=== PATIENT | female | born 1990 | race Caucasian/White ===

== ENCOUNTER → 2017-12-28 | Outpatient (CLI) | payer BC ==
[2017-12-28 09:56] LABS: HCT 36.2 % (34.0-46.0); HGB 12.6 gm/dL (11.4-16.0); MCH 29.3 pg (25.0-35.0); MCHC 34.8 g/dL (31.0-37.0); Mean Platelet Volume 7.9; Platelet Count 151 k/uL (150-450); RDW 13.8 % (11.5-15.5); WBC 7.6 k/uL (3.8-10.6)
[2017-12-28 18:29] LABS: HIV AB P24 Non-Reactive (Non-Reactive); HIV P24 AG Non-Reactive (Non-Reactive)
[2017-12-30 11:01] LABS: Parvovirus B-19 IgG Antibodies 7.37 INDEX (<=0.90); Parvovirus B-19 IgM Antibodies 0.15 INDEX (<=0.90)
== END ==
LOC: LABWHC1 09:04
PROVIDERS: ATTEND Obstetrics & Gynecology
DX: Z34.90 Encounter for supervision of normal pregnancy, unspecified, unspecified trimester (principal)
CPT/HCPCS: 36415; 82950; 85027; 86747; 86762; 86780; 86850; 86900; 86901; 87086; 87340; 87390

== ENCOUNTER 2018-07-04 01:57 | Inpatient (IN) | payer BC ==
[2018-07-04] MEDS ORDERED: METHYLERGONOVINE 0.2 MG/ML 1 ML AMP IM PRN (02:30)
[2018-07-04] MEDS ORDERED: OXYTOCIN 10 UNIT/ML 1 ML VIAL IM PRN (02:30)
[2018-07-04] MEDS ORDERED: OXYTOCIN 20 UNITS/1000 ML NS 1,000 ML IV SCH ×2 (02:30→18:30)
[2018-07-04] MEDS ORDERED: CARBOPROST TROMETHAMINE 250 MCG/ML 1 ML AMP IM PRN (02:30)
[2018-07-04] MEDS ORDERED: LIDOCAINE 0.5% (PF) 5 MG/ML (50 ML SDV) SQ PRN (02:30)
[2018-07-04] MEDS ORDERED: TERBUTALINE 1 MG/ML VIAL SQ PRN (02:30)
[2018-07-04 02:55] VITALS: BMI 38.2
[2018-07-04 02:59] LABS: Basophils % (A) 0 %; Eosinophils # (A) 0.1 k/uL (0-0.7); Eosinophils % (A) 1 %; HCT 38.9 % (34.0-46.0); Lymphocytes # (A) 1.4 k/uL (1.0-4.8); Lymphocytes % (A) 15 %; MCH 28.2 pg (25.0-35.0); MCHC 33.3 g/dL (31.0-37.0); MCV 84.8 fL (80.0-100.0); Mean Platelet Volume 7.8; Monocytes # (A) 0.5 k/uL (0-1.0); Monocytes % (A) 5 %; Neutrophils % (A) 77 %; Platelet Count 148 k/uL (150-450); RBC 4.59 m/uL (3.80-5.40); RDW 14.9 % (11.5-15.5); WBC 9.1 k/uL (3.8-10.6)
[2018-07-04] MEDS: LACTATED RINGERS 1,000 ML IV SCH ×3 (03:00→10:42)
[2018-07-04] MEDS ORDERED: BUTORPHANOL 1 MG/ML 1 ML VIAL IV PRN (03:59)
[2018-07-04] MEDS ORDERED: fentaNYL (PF) 50 MCG/ML 5 ML AMP ONE (07:39)
[2018-07-04] MEDS ORDERED: LIDOCAINE 1% INJ 10MG/ML (20 ML MDV) ONE (07:39)
[2018-07-04] MEDS ORDERED: SODIUM CHLORIDE 0.9% 100 ML BAG ONE (07:39)
[2018-07-04] MEDS ORDERED: ROPIVACAINE 5MG/ML 20ML VIAL ONE (07:39)
--- NOTE | 2018-07-04 10:59 | P.HPOB ---
History of Present Illness H&P Date: 07/04/18 Chief Complaint: IUP @ 38 3/7 weeks, PROM This is a 28yo at 38 3/7 weeks that presents to labor and delivery with c/ o SROM around 1 am, clear in nature. she denies CTX, VB and notes good FM. Patient has been receiving routine care with Dr. Lira since first trimester. Patient did fail her 1 hour Glucola but subsequently passed her 3 hour GTT On blood work she had a blood type of B+, rubella immune, hepatitis B surface antigen negative, RPR nonreactive, GBS negative in addition. Review of Systems Constitutional: Denies chills, Denies fatigue, Denies fever Ears, nose, mouth and throat: Denies headache Cardiovascular: Reports leg edema Respiratory: Denies cough, Denies dyspnea Gastrointestinal: Denies constipation, Denies diarrhea, Denies nausea, Denies vomiting Genitourinary: Reports Past Medical History Past Medical History: No Reported History Additional Past Medical History / Comment(s): Migraines History of Any Multi-Drug Resistant Organisms: None Reported Past Surgical History: Adenoidectomy, Tonsillectomy Additional Past Surgical History / Comment(s): sinus surgery Past Anesthesia/Blood Transfusion Reactions: No Reported Reaction Past Psychological History: Anxiety, Depression Smoking Status: Never smoker Past Alcohol Use History: Rare Past Drug Use History: None Reported - Past Family History Mother Family Medical History: No Reported History Medications and Allergies Home Medications Medication Instructions Recorded Confirmed Type L.acidoph,Paracasei, B.lactis 1 each PO DAILY 06/11/17 07/04/18 History [Probiotic] Pnv No.95/Ferrous Fum/Folic AC 1 each PO DAILY 06/11/17 07/04/18 History [ Multivitamin Tablet] busPIRone HCl [Buspar] 10 mg PO BID 06/11/17 07/04/18 History Allergies Allergy/AdvReac Type Severity Reaction Status Date / Time cefaclor [From [facility]] Allergy Swelling Verified 07/04/18 02:05 Exam Osteopathic Statement: *. No significant issues noted on an osteopathic structural exam other than those noted in the History and Physical/Consult. Vital Signs Temp Pulse Resp BP Pulse Ox 07/04/18 02:07 97.5 F L 112 H 16 141/83 96 Intake and Output 07/03/18 07/04/18 07/04/18 22:59 06:59 14:59 Other: # Voids 1 Weight 107.501 kg Targeted physical exam was performed in general she is a well-developed well- nourished gravid female in no acute distress, lungs are clear to auscultation bilaterally heart is noted to have a regular rate and rhythm, abdomen is known to be gravid and appropriate for gestational age, cervix was noted to be 5 cm per RN, patient was noted to be grossly ruptured and fluid was clear in nature. heart tones were noted to be reassuring Results Result Diagrams: 07/04/18 02:49 Abnormal Lab Results - Last 24 Hours (Table) 07/04/18 Range/Units 02:49 Plt Count 148 L (150-450) k/uL Assessment and Plan (1) Term Current Visit: Yes Status: Acute Code(s): Z34.80 - ENCOUNTER FOR SUPRVSN OF NORMAL , UNSP TRIMESTER SNOMED Code(s): 04874756 (2) PROM (premature rupture of membranes) Current Visit: Yes Status: Acute Code(s): O42.90 - BRENNA ROM, 7TH0 BETW RUPT & ONST LABR, UNSP WEEKS OF GEST SNOMED Code(s): 89524287 Plan: Willl admit to labor and delivery, and anticipate spontaneous vaginal delivery later this afternoon
[2018-07-04] MEDS ORDERED: diphenhydrAMINE 50 MG CAP PO PRN (18:24)
[2018-07-04] MEDS ORDERED: LANOLIN CREAM 5 GM TUBE TOPICAL PRN (18:24)
[2018-07-04] MEDS ORDERED: HYDROCORTISONE 2.5% RECTAL CREAM 30 GM TUBE RECTAL PRN (18:24)
[2018-07-04] MEDS ORDERED: diphenhydrAMINE 25 MG CAP PO PRN (18:24)
[2018-07-04] MEDS ORDERED: WITCH HAZEL 1 EACH MED..PAD TOPICAL PRN (18:24)
[2018-07-04] MEDS ORDERED: ACETAMINOPHEN TAB 325 MG TAB PO PRN (18:24)
[2018-07-04] MEDS ORDERED: BENZOCAINE/MENTHOL SPRAY 1 GM/SPRAY AEROSOL TOPICAL PRN (18:24)
[2018-07-04] MEDS ORDERED: diphenhydrAMINE 50 MG/ML 1 ML VIAL IVP PRN ×2 (18:24)
[2018-07-04] MEDS ORDERED: ZOLPIDEM 5 MG TAB PO PRN (18:24)
[2018-07-04] MEDS ORDERED: SIMETHICONE 80 MG CHEWABLE PO PRN (18:24)
--- NOTE | 2018-07-04 18:24 | P.PROBDLV ---
Vaginal Delivery Note - . Vaginal Delivery Note: This is a pleasant 28-year-old 1 para 0 at 38-3/7 weeks that presented to labor and delivery early this morning with complaints of rupture of membranes at 1 AM. Patient noted the fluid to be clear and presented to labor and delivery at 2:30. Patient denied contractions at that time and was 1 cm dilated. Patient was started on Pitocin augmentation of labor and progressed through labor eventually becoming uncomfortable and requested an epidural. Epidural was placed by anesthesia without difficulty. Patient continued through labor became complete began pushing was placed in a modified lithotomy position and with excellent maternal effort patient delivered a viable male at 1747, weight of 8 lbs. 8 oz. with Apgars of 4 and 8. Patient did undergo a midline episiotomy second degree without extension secondary to maternal exhaustion. The placenta was then delivered spontaneously intact with a three-vessel cord being noted. The vaginal vault was inspected and a midline episiotomy had been performed this was repaired in the usual fashion with 3-0 Rapide. A rectal exam was performed and was normal in nature. Afterwards the uterus was noted to be firm and below the umbilicus and the bleeding was noted to be scant. Estimated blood loss for this delivery 300 mL. Infant was noted to have some difficulty with breathing just after delivery and was taken to special care nursery and placed on high flow oxygen. All counts were correct 2 and patient tolerated delivery well
[2018-07-04] MEDS: IBUPROFEN 600 MG TAB PO PRN (18:41)
[2018-07-04] MEDS ORDERED: busPIRone HCl 10 MG TAB PO SCH (21:00)
[2018-07-04] MEDS: SENNOSIDES-DOCUSATE SODIUM 1 EACH TAB PO SCH (21:31)
[2018-07-05] MEDS: IBUPROFEN 600 MG TAB PO PRN ×3 (00:30→14:13)
[2018-07-05 06:59] LABS: Basophils % (A) 0 %; Eosinophils % (A) 0 %; HCT 31.6 % (34.0-46.0); HGB 10.9 gm/dL (11.4-16.0); Lymphocytes % (A) 7 %; MCH 29.6 pg (25.0-35.0); MCHC 34.5 g/dL (31.0-37.0); MCV 85.6 fL (80.0-100.0); Mean Platelet Volume 8.2; Monocytes # (A) 0.6 k/uL (0-1.0); Monocytes % (A) 4 %; Neutrophils # (A) 12.4 k/uL (1.3-7.7); Neutrophils % (A) 88 %; Platelet Count 129 k/uL (150-450); RBC 3.69 m/uL (3.80-5.40); WBC 14.1 k/uL (3.8-10.6)
[2018-07-05] MEDS ORDERED: PRENATAL VIT-IRON-FOLIC ACID 1 EACH CAP PO SCH (09:00)
--- NOTE | 2018-07-05 09:02 | P.PNOBGVD ---
Subjective - Subjective Principal diagnosis: PPD 1 Interval history: Patient is doing well . She is ambulating and voiding without difficulty, she is tolerating a regular diet without nausea or vomiting. She denies concerns this morning. She is pumping as the is in special care nursery. Patient reports: Reports appetite normal, Reports voiding normally, Reports pain well controlled, Reports ambulating normally : doing well (In special care nursery on oxygen otherwise doing well.) Objective - Latest Vital Signs Latest vital signs: Vital Signs Temp Pulse Resp BP Pulse Ox 07/05/18 04:00 98.1 F 95 15 141/76 98 07/05/18 00:00 98 F 107 H 15 145/78 98 07/04/18 20:21 98 F 101 H 15 137/66 07/04/18 19:51 108 H 15 139/75 98 07/04/18 19:21 98 F 100 15 135/70 07/04/18 19:06 116 H 20 158/76 07/04/18 18:51 101 H 20 138/76 07/04/18 18:36 97.6 F 106 H 20 150/80 07/04/18 18:21 121 H 20 116/72 Intake and Output 07/04/18 07/05/18 07/05/18 22:59 06:59 14:59 Output Total 315 Balance -315 Output: Urine 15 Estimated Blood Loss 300 Other: # Voids 1 - Exam Extremities: Present: normal Abdomen: Present: normal appearance, soft Uterus: Present: normal, firm - Labs Labs: Abnormal Lab Results - Last 24 Hours (Table) 07/05/18 Range/Units 06:24 WBC 14.1 H (3.8-10.6) k/uL RBC 3.69 L (3.80-5.40) m/uL Hgb 10.9 L (11.4-16.0) gm/dL Hct 31.6 L (34.0-46.0) % Plt Count 129 L (150-450) k/uL Neutrophils # 12.4 H (1.3-7.7) k/uL Assessment and Plan (1) Term Current Visit: Yes Status: Acute Code(s): Z34.80 - ENCOUNTER FOR SUPRVSN OF NORMAL , UNSP TRIMESTER SNOMED Code(s): 00936002 (2) PROM (premature rupture of membranes) Current Visit: Yes Status: Acute Code(s): O42.90 - BRENNA ROM, 7TH0 BETW RUPT & ONST LABR, UNSP WEEKS OF GEST SNOMED Code(s): 61796403 (3) Status post normal vaginal delivery Current Visit: Yes Status: Acute Code(s): EYZ9821 - SNOMED Code(s): 287146068 Plan: Patient is doing well . Will continue routine care
[2018-07-05 09:23] VITALS: RESP 16
[2018-07-05] MEDS: SENNOSIDES-DOCUSATE SODIUM 1 EACH TAB PO SCH (09:25)
[2018-07-05 16:08] VITALS: BP 146/74; PULSE 85; TEMP 98.1
--- NOTE | 2018-07-05 17:20 | P.DS ---
Providers Date of admission: 07/04/18 02:08 Expected date of discharge: 07/05/18 Attending physician: Malaika Lira Primary care physician: Stated None - Discharge Diagnosis(es) (1) Term Current Visit: Yes Status: Acute (2) PROM (premature rupture of membranes) Current Visit: Yes Status: Acute (3) Status post normal vaginal delivery Current Visit: Yes Status: Acute Hospital Course: This is a pleasant 28-year-old 1 para 0 at 38-3/7 weeks that presented to labor and delivery with complaints of rupture of membranes around 1 AM clear in nature.. Patient was noted to be GBS negative patient denied contractions and was 1 cm on admission Pitocin augmentation of labor was begun approximately 4 hours later patient progressed through labor coming uncomfortable and requesting an epidural. Epidural was placed without difficulty by anesthesia. Patient continued to labor became complete began pushing and had a normal spontaneous vaginal delivery of a viable male infant at 1747 weight of 8 lbs. 8 oz. Apgars of 4 and 8 at one and 5 minutes respectively. Patient did undergo a midline episiotomy second-degree in nature without extension secondary to maternal exhaustion. This was repaired in the usual fashion with 3-0 repeat. The placenta was delivered spontaneously intact with a three-vessel cord being noted. Patient's uterus was noted to be firm after the delivery. Patient has done well on this day #1 she is involuting and voiding without difficulty. She is tolerating regular diet without nausea or vomiting. Infant was taken to the special care nursery for monitoring after delivery as he did not have a spontaneous cry. He did have a pulse ox of 100% on room air after delivery. He was placed on high flow oxygen and was doing well. At approximately 24 hours of life infant was noted to have seizure activity and the decision was made by pediatrics to transfer the infant to [facility]. Head ultrasound was done and appeared normal per bedside read. Patient desires discharge as her infant is being transferred to tertiary care center. Patient Condition at Discharge: Good Plan - Discharge Summary New Discharge Prescriptions: No Action busPIRone HCl [Buspar] 10 mg PO BID Pnv No.95/Ferrous Fum/Folic AC [ Multivitamin Tablet] 1 each PO DAILY L.acidoph,Paracasei, B.lactis [Probiotic] 1 each PO DAILY Discharge Medication List L.acidoph,Paracasei, B.lactis [Probiotic] 1 each PO DAILY 06/11/17 [History] Pnv No.95/Ferrous Fum/Folic AC [ Multivitamin Tablet] 1 each PO DAILY [History] busPIRone HCl [Buspar] 10 mg PO BID 06/11/17 [History] Follow up Appointment(s)/Referral(s): Karlene Salvador DO [Doctor of Osteopathic Medicine] - 1 Week Patient Instructions/Handouts: Vaginal Delivery (DC), Vaginal Delivery (GEN) Discharge Disposition: HOME SELF-CARE
== END 2018-07-05 18:58 | disposition home or self-care (01) | DRG 807 ==
LOC: FBPOP 01:57 → 4FBP 02:08
PROVIDERS: ADMIT Obstetrics & Gynecology Obstetrics; ATTEND Obstetrics & Gynecology
PROC: 10E0XZZ Delivery of Products of Conception, External Approach (ICD-10-PCS; principal; 2018-07-04)
PROC: 00HU33Z Insertion of Infusion Device into Spinal Canal, Percutaneous Approach (ICD-10-PCS; principal; 2018-07-04)
PROC: 0W8NXZZ Division of Female Perineum, External Approach (ICD-10-PCS; principal; 2018-07-04)
PROC: 3E0R3NZ Introduction of Analgesics, Hypnotics, Sedatives into Spinal Canal, Percutaneous Approach (ICD-10-PCS; principal; 2018-07-04)
DX: O42.92 Full-term premature rupture of membranes, unspecified as to length of time between rupture and onset of labor (principal); Z37.0 Single live birth; F32.9 Major depressive disorder, single episode, unspecified; F41.9 Anxiety disorder, unspecified; O99.344 Other mental disorders complicating childbirth; Z3A.38 38 weeks gestation of pregnancy; O75.81 Maternal exhaustion complicating labor and delivery
CPT/HCPCS: 59025; 84112; 85025; 86850; 86900; 86901; 99213

== ENCOUNTER → 2020-06-14 | Outpatient (CLI) | payer BC | END | disposition home or self-care (01) | LOC: LABWHC1 09:23 | PROVIDERS: ATTEND Otolaryngology | DX: J30.89 Other allergic rhinitis (principal) | CPT/HCPCS: 36415 ==

== ENCOUNTER → 2020-11-17 | Outpatient (CLI) | payer BC ==
[2020-11-17 19:47] LABS: Estradiol 29.1 pg/mL
[2020-11-17 19:56] LABS: Insulin Level 8.8 mIU/mL (3.0-25.0)
[2020-11-17 20:05] LABS: ALT 17 U/L (8-44); AST 15 U/L (13-35); African American GFR (CKD) 114.7 (60.0-200.0); Glucose 104 mg/dL (70-110); Non-African American GFR(CKD) 98.9 (60.0-200.0)
[2020-11-17 20:11] LABS: Prolactin 12.4 ng/mL (2.8-29.2)
[2020-11-17 20:24] LABS: HCG,Quantitative Serum <2.0 mIU/mL
[2020-11-17 20:51] LABS: Thyroid Peroxidase Antibodies <28.0 U/mL (0.0-60.0)
[2020-11-17 22:06] LABS: Hemoglobin A1C 5.1 % (4.0-6.0)
[2020-11-18 05:58] LABS: Varicella IgM Antibody 0.74 INDEX (<=0.90)
[2020-11-18 16:43] LABS: Anti-Mullerian Hormone 1.83 ng/mL (0.69 - 13.39)
== END | disposition home or self-care (01) ==
LOC: LABWHC1 08:04
PROVIDERS: ATTEND Obstetrics & Gynecology Reproductive Endocrinology
DX: N97.0 Female infertility associated with anovulation (principal)
CPT/HCPCS: 36415; 82306; 82397; 82565; 82670; 82947; 83001; 83036; 83525; 84146; 84403; 84439; 84443; 84450; 84460; 84481; 84520; 84702; 86376; 86762; 86787; 86800; 86850; 86900; 86901

== ENCOUNTER → 2021-09-01 | Outpatient (CLI) | payer BC | END | disposition home or self-care (01) | LOC: LABWHC1 07:29 | PROVIDERS: ATTEND Physician Assistant | DX: N97.9 Female infertility, unspecified (principal) | CPT/HCPCS: 36415; 84144 ==

== ENCOUNTER → 2022-01-27 | Outpatient (CLI) | payer BC | END | disposition home or self-care (01) | LOC: LABWHC1 08:41 | PROVIDERS: ATTEND Obstetrics & Gynecology Reproductive Endocrinology | DX: E13.9 Other specified diabetes mellitus without complications (principal); E03.9 Hypothyroidism, unspecified; E56.9 Vitamin deficiency, unspecified | CPT/HCPCS: 36415; 82306; 83036; 84443 ==

== ENCOUNTER 2022-02-25 03:54 | Emergency (ER) | payer BC ==
[2022-02-25 04:08] VITALS: PULSE 85; TEMP 98.6
--- NOTE | 2022-02-25 05:04 | ED ---
Female Urogenital HPI - General Source: patient, RN notes reviewed, old records reviewed Mode of arrival: ambulatory Limitations: no limitations - History of Present Illness MD Complaint: dysuria, pelvic pain -: days(s) Location: suprapubic Radiation: suprapubic Severity: moderate Severity scale (1-10): 7 Quality: cramping, sharp Consistency: constant Improves with: urination Last Menstrual Period: 02/02/22 Patient : No Associated Symptoms: abdominal pain, hematuria <Edu Mckee - Last Filed: 02/25/22 06:58> <Edu Street - Last Filed: 02/25/22 08:27> - General Chief complaint: Urogenital Stated complaint: Blood in urine Time Seen by Provider: 02/25/22 04:46 - Related Data Home Medications Medication Instructions Recorded Confirmed L.acidoph,Paracasei, B.lactis 1 each PO DAILY 06/11/17 07/04/18 [Probiotic] Pnv No.95/Ferrous Fum/Folic AC 1 each PO DAILY 06/11/17 07/04/18 [ Multivitamin Tablet] busPIRone HCl [Buspar] 10 mg PO BID 06/11/17 07/04/18 Allergies Allergy/AdvReac Type Severity Reaction Status Date / Time cefaclor [From Ceclor] Allergy Swelling Verified 02/25/22 04:08 Review of Systems ROS Other: All systems not noted in ROS Statement are negative. <Edu Mckee - Last Filed: 02/25/22 06:58> ROS Other: All systems not noted in ROS Statement are negative. <Edu Street - Last Filed: 02/25/22 08:27> ROS Statement: Those systems with pertinent positive or pertinent negative responses have been documented in the HPI. Past Medical History Past Medical History: No Reported History Additional Past Medical History / Comment(s): Migraines History of Any Multi-Drug Resistant Organisms: None Reported Past Surgical History: Adenoidectomy, Appendectomy, Tonsillectomy Additional Past Surgical History / Comment(s): sinus surgery, endometreoisis Past Anesthesia/Blood Transfusion Reactions: No Reported Reaction Past Psychological History: Anxiety, Depression Smoking Status: Never smoker Past Alcohol Use History: Rare Past Drug Use History: None Reported - Past Family History Mother Family Medical History: No Reported History <Edu Mckee - Last Filed: 02/25/22 06:58> General Exam Limitations: no limitations General appearance: alert, in no apparent distress Head exam: Present: atraumatic, normocephalic, normal inspection Eye exam: Present: normal appearance, PERRL, EOMI. Absent: scleral icterus, conjunctival injection, periorbital swelling ENT exam: Present: normal exam, mucous membranes moist Neck exam: Present: normal inspection. Absent: tenderness, meningismus, lymphadenopathy Respiratory exam: Present: normal lung sounds bilaterally. Absent: respiratory distress, wheezes, rales, rhonchi, stridor Cardiovascular Exam: Present: regular rate, normal rhythm, normal heart sounds. Absent: systolic murmur, diastolic murmur, rubs, gallop, clicks GI/Abdominal exam: Present: soft, normal bowel sounds. Absent: distended, tenderness, guarding, rebound, rigid Extremities exam: Present: normal inspection, full ROM, normal capillary refill. Absent: tenderness, pedal edema, joint swelling, calf tenderness Back exam: Present: normal inspection Neurological exam: Present: alert, oriented X3, CN II-XII intact Psychiatric exam: Present: normal affect, normal mood Skin exam: Present: warm, dry, intact, normal color. Absent: rash <Edu Mckee - Last Filed: 02/25/22 06:58> Course Vital Signs 02/25/22 02/25/22 04:03 08:23 Temperature 98.6 F Pulse Rate 85 85 Respiratory 20 18 Rate Blood Pressure 135/83 145/65 O2 Sat by Pulse 100 97 Oximetry Medical Decision Making <Edu Street - Last Filed: 02/25/22 08:27> - Medical Decision Making Ultrasound showed some debris in the bladder possibly blood Patient urinated while in the emergency department and her bladder scan showed 50. We gave the patient the option to have a Cardona in because it appeared on the ultrasound that she had blood in the bladder but she wanted go home and try it without a Cardona. (Edu Street) - Lab Data Lab Results 02/25/22 02/25/22 Range/Units 05:25 05:25 Urine Color Red Urine Appearance Clear (Clear) Urine pH 6.0 (5.0-8.0) Ur Specific [place] 1.010 (1.001-1.035) Urine Protein 2+ H (Negative) Urine Glucose (UA) Negative (Negative) Urine Ketones Negative (Negative) Urine Blood Large H (Negative) Urine Nitrite Negative (Negative) Urine Bilirubin Negative (Negative) Urine Urobilinogen <2.0 (<2.0) mg/dL Ur Leukocyte Esterase Small H (Negative) Urine RBC >182 H (0-5) /hpf Urine WBC 10 H (0-5) /hpf Urine Bacteria Rare H (None) /hpf Urine HCG, Qual Not Detected (Not Detectd) Disposition <Edu Mckee - Last Filed: 02/25/22 06:58> Is patient prescribed a controlled substance at d/c from ED?: No Time of Disposition: 08:[address] <[address] - Last Filed: 02/25/22 08:27> Clinical Impression: Hematuria, Urinary retention Disposition: HOME SELF-CARE Condition: Good Instructions (If sedation given, give patient instructions): Acute Urinary Retention in Women (ED), Hematuria (ED) Additional Instructions: Follow-up with [facility]
[2022-02-25 06:08] LABS: Appearance,Urine Clear (Clear); Bacteria,Urine Rare /hpf; Bilirubin,Urine Negative (Negative); Blood,Urine Large (Negative); Color,Urine Red; Glucose,Urine (UA) Negative (Negative); Ketones,Urine Negative (Negative); Leukocyte Esterase,Urine Small (Negative); Nitrite,Urine Negative (Negative); Protein,Urine 2+ (Negative); RBC,Urine >182 /hpf (0-5); Urobilinogen,Urine <2.0 mg/dL (<2.0); WBC,Urine 10 /hpf (0-5)
--- NOTE | 2022-02-25 07:40 | US ---
EXAMINATION TYPE: US transvaginal DATE OF EXAM: 02/25/2022 COMPARISON: NONE CLINICAL HISTORY: pain. IVF patient. Patient had embryo transfer x 6 days ago. Blood in urine and u nable to urinate. TECHNIQUE: Transvaginal (TV). Date of LMP: 02/02/2022, EXAM MEASUREMENTS: Uterus: 10.1 x 5.1 x 4.8 cm Endometrial Stripe: 0.3 cm Right Ovary: 3.2 x 2.1 x 2.3 cm Left Ovary: 5.7 x 3.2 x 2.9 cm 1. Uterus: Anteverted wnl 2. Endometrium: wnl 3. Right Ovary: wnl 4. Left Ovary: Cystic area with internal echoes= 2.2 x 2.4 x 2.2 cm Spectral, color and waveform doppler imaging shows good arterial and venous flow within the ovaries ; there is no evidence for ovarian torsion. 5. Bilateral Adnexa: wnl 6. Posterior cul-de-sac: no free fluid Incidental finding: Internal echoes visualized within bladder IMPRESSION: 1. The left ovarian cystic lesion with internal echoes may reflect a small hemorrhagic cyst. Consider follow-up study in 6 weeks. 2. Internal echoes within the urinary bladder of uncertain etiology. Correlate for infection.
[2022-02-25 08:24] VITALS: BP 145/65; RESP 18
== END 2022-02-25 08:38 | disposition home or self-care (01) ==
LOC: EC 03:54
DX: R31.9 Hematuria, unspecified (principal); R33.9 Retention of urine, unspecified; F32.A Depression, unspecified; F41.9 Anxiety disorder, unspecified; Z88.1 Allergy status to other antibiotic agents
CPT/HCPCS: 76830; 81001; 81025; 93975; 99284

== ENCOUNTER → 2022-03-08 | Outpatient (CLI) | payer BC ==
[2022-03-08 09:39] LABS: HCG,Quantitative Serum <2.4 mIU/mL
== END | disposition home or self-care (01) ==
LOC: LABWHC1 08:38
PROVIDERS: ATTEND Obstetrics & Gynecology Reproductive Endocrinology
DX: Z32.00 Encounter for pregnancy test, result unknown (principal)
CPT/HCPCS: 36415; 84443; 84702